=== PATIENT | female | born 1945 | race Caucasian/White ===

== ENCOUNTER 2021-08-06 08:35 | Inpatient (IN) | payer MEDICARE, OTHER ==
[~2021-08-06] VITALS: Ht 147.3 cm; Wt 52.2 kg
--- NOTE | 2021-08-06 08:46 | NUR ---
BIB RA 84 FROM HOME,RECENTLY DIAGNOSED WITH ALZHEIMER'S,AGITATED,THROWING "STUFF" AT HER WHO CALLED 911. THE PATIENT IS ALERT AND ORIENTED X2. DENIES PAIN. IN ROOM AIR AND DENIES SOB. RESPIRATION REGULAR AND UNLABORED. THE PATIENT DENIES SI/HI. DENIES VISUAL/AUDITORY HALLUCINATIONS. THE PATIENT IS ATTACHED TO THE MONITOR. WARM BLANKET PROVIDED FOR COMFORT. WILL CONTINUE TO MONITOR THE PATIENT.
--- NOTE | 2021-08-06 08:58 | NUR ---
urine collected and sent to the lab
--- NOTE | 2021-08-06 08:58 | NUR ---
covid antigen swab done and sent to the lab
--- NOTE | 2021-08-06 09:03 | NUR ---
Walker () [phone] (home number) # [phone]
[2021-08-06 09:05] LABS: BASOPHILS # (AUTO) 0.1 K/uL (0.0-0.2); BASOPHILS % (AUTO) 1.4 % (0.0-2.0); EOSINOPHILS % (AUTO) 3.4 % (0.0-6.0); HEMATOCRIT 38 % (33-45); HEMOGLOBIN 12.5 g/dL (11.5-14.8); LYMPHOCYTES # (AUTO) 1.3 K/uL (0.8-4.8); LYMPHOCYTES % (AUTO) 23.7 % (20.0-44.0); MEAN CORPUSCULAR HGB CONC 33 g/dl (31.0-36.0); MEAN CORPUSCULAR VOLUME 94 fL (82-100); MONOCYTES # (AUTO) 0.5 K/uL (0.1-1.30); MONOCYTES % (AUTO) 9.7 % (2.0-12.0); NEUTROPHILS # (AUTO) 3.3 K/uL (1.8-8.9); NEUTROPHILS % (AUTO) 61.8 % (43.0-81.0); PLATELET COUNT (AUTO) 253 K/uL (150-450); WHITE BLOOD COUNT (AUTO) 5.4 K/uL (4.3-11.0)
[2021-08-06 09:08] LABS: BILIRUBIN,URINE NEGATIVE (NEGATIVE); COLOR,URINE YELLOW (YELLOW); LEUKOCYTE ESTERASE ,URINE NEGATIVE (NEGATIVE); NITRITE, URINE NEGATIVE (NEGATIVE); PH,URINE 5.5 (5.0-8.0); PROTEIN,URINE NEGATIVE (NEGATIVE); UGLUCOSE NEGATIVE (NEGATIVE); UROBILINOGEN,URINE 0.2 EU/dL (0.2)
[2021-08-06] MEDS ORDERED: AMLO1CAP5 PO (09:19)
[2021-08-06] MEDS ORDERED: MEMA1CAP5 PO (09:19)
[2021-08-06] MEDS ORDERED: ESCI10TA PO (09:19)
[2021-08-06] MEDS ORDERED: QUET25TA PO (09:19)
[2021-08-06] MEDS ORDERED: ESTR-7 PO (09:19)
[2021-08-06 09:31] LABS: BACTERIA,URINE 2+ /HPF (None Seen); RBC,URINE 0-2 /HPF (0-2); SQUAMOUS EPITHELIAL CELL,UR Moderate /HPF (None Seen); WBC,URINE 0-2 /HPF (0-3)
[2021-08-06 09:32] LABS: CALCIUM OXALATE CRYSTALS,UR Moderate /HPF (None Seen)
[2021-08-06 09:38] LABS: ALANINE AMINOTRANSFERASE 18 U/L (12-78); ALBUMIN 3.6 g/dL (3.4-5.0); ALKALINE PHOSPHATASE 57 U/L (46-116); ASPARTATE AMINOTRANSFERASE 15 U/L (15-37); BILIRUBIN,DIRECT 0.2 mg/dL (0.0-0.2); BILIRUBIN,TOTAL 0.9 mg/dL (0.2-1.0); CARBON DIOXIDE 26 mmol/L (21-32); CHLORIDE 108 mmol/L (98-107); CREATININE 0.6 mg/dL (0.6-1.3); GLUCOSE 96 mg/dL (74-106); POTASSIUM 3.5 mmol/L (3.5-5.1); SODIUM SERUM 143 mmol/L (136-145); TOTAL PROTEIN, SERUM 6.3 g/dL (6.4-8.2); UREA NITROGEN, BLOOD 10 mg/dL (7-18)
[2021-08-06 09:46] LABS: ALCOHOL, BLOOD < 3 mg/dL (0-0)
[2021-08-06 09:47] LABS: ACETAMINOPHEN < 0 ug/ml (10-30)
--- NOTE | 2021-08-06 09:55 | NUR ---
CALLED LEI PUGH.
--- NOTE | 2021-08-06 12:17 | NUR ---
MOVE SHEET SUBMITTED.
--- NOTE | 2021-08-06 15:00 | NUR ---
PATIENT IS CALM RESPONDING POLITELY.
--- NOTE | 2021-08-06 16:51 | NUR ---
GOT BED 219-B
--- NOTE | 2021-08-06 17:24 | NUR ---
REPORT GIVEN TO NURSE MANN FOR VALERY
[2021-08-06] MEDS ORDERED: MAG HYDROX/AL HYDROX/SIMETH 30 ML UDC PO PRN (20:00)
[2021-08-06] MEDS ORDERED: BLOOD SUGAR DIAGNOSTIC 1 EACH STRIP IN ONE (20:00)
[2021-08-06 20:11] VITALS: BP 117/69
[2021-08-06] MEDS ORDERED: LORAZEPAM 0.5 MG TABLET PO PRN (20:30)
[2021-08-06] MEDS ORDERED: TEMAZEPAM 7.5 MG CAPSULE PO PRN (20:30)
--- NOTE | 2021-08-06 20:41 | NUR ---
RN NOTES :REFUSED SKIN ASSESSMENT PT. REFUSED FULL BODY ,SKIN ASSESSMENT AND PHOTOS TAKEN, ENCOURAGED X3 RISKS AND BENEFITS EXPLAINED, PER PT.MY SKIN IS FINE AND I AM FEELING IRRITABLE .
--- NOTE | 2021-08-06 20:42 | NUR ---
RN NOTES: PT. INTALLIY BLOOD SUGAR WAS 80 MGDL , PROVIDE SNACKS ,ORANGE JUICES GRANCRAKERS AND SANDWICH , PT. ATE SNACKS WELL , AND PT. REFUSED TO RECHECK BLOOD SUGAR, PER PT. I AM FINE.
[2021-08-06 23:57] VITALS: BP 118/72
--- NOTE | 2021-08-07 00:03 | NUR ---
RN NOTES : ADMISSION NOTES: ADMITTED THIS 76Y/O FEMALE PATIENT ADMIT FROM [facility]/ED , INITIALLY FROM HOME PT. ADMITTED TO 5150 HOLD STATUS, PER HOLD PT.INCREASED AGITATION,CONFUSION AND AGGRESSIVE BEHAVIOR . PER HER BREAKING THINGS AT HOME SCREAMING YELLING AT HIM,UPON FACE TO FACE ASSESSMENT PATIENT IS A&O X1 UNCOOPERTIVE ANXIOUS ,EASILY AGITATED, RESTLESS ,PARANOID ,DISHELVED ,DISORGNIZED, CONFUSED , LOUD SPEECH, HYPERVERBAL ,BIZAAR BEHAVIOR, JUMPING ONE TOPIC TO ANOTHER,NEEDS FREQUENTLY REDIRECTIONS , DENIES SI /HI AT THIS TIME, PT. IS POOR HISTORIAN, POOR INSIGHT ,POOR JUDGEMENT , BOTH MD AWARE AND NOTIFIED OF THE ADMISSION, BELONGINGS CONTRABAND WERE DONE , PT. REFUSED SIGNS ADMISSION CONSENT PAPER DUE TO CONFUSION ,ENCOURAGED PT. TO TAKE SHOWER, PT. RIGHTS DISCUSS BY ATHLETIC SCOUT , PROVIDE THE PT. WITH HANDBOOK, AND MEDICATIONS GUIDE, ENVIRONMENTAL SAFETY CHECK DONE, ENCOURAGED PT. VERBALIZED ANY FEELING CONCERN TO STAFF, ORIENT TO UNIT POLICY, NO ACUTE DISTRESS NOTED,VITAL SIGNS WNL ,DENIES ANY PAIN AT THIS TIME,WILL CONTINUE TO MONITOR FOR Q15 SAFETY AND BEHAVIOR.
[2021-08-07] MEDS: LORAZEPAM 0.5 MG TABLET PO PRN (04:50)
--- NOTE | 2021-08-07 04:53 | NUR ---
RN NOTES: ANXIETY PT. NOTED ANXIOUS SCREAMING PARANOID,YELLING NON REDIRECTABLE PRN ATIVAN 0.5 MG PO GIVEN , WILL CONTINUE TO MONITOR.
[2021-08-07 07:18] LABS: BASOPHILS # (AUTO) 0.1 K/uL (0.0-0.2); BASOPHILS % (AUTO) 1.1 % (0.0-2.0); HEMATOCRIT 42 % (33-45); HEMOGLOBIN 13.9 g/dL (11.5-14.8); LYMPHOCYTES # (AUTO) 1.4 K/uL (0.8-4.8); LYMPHOCYTES % (AUTO) 20.4 % (20.0-44.0); MEAN CORPUSCULAR HGB CONC 33 g/dl (31.0-36.0); MEAN CORPUSCULAR VOLUME 93 fL (82-100); MONOCYTES # (AUTO) 0.7 K/uL (0.1-1.30); MONOCYTES % (AUTO) 10.1 % (2.0-12.0); NEUTROPHILS # (AUTO) 4.7 K/uL (1.8-8.9); NEUTROPHILS % (AUTO) 67.4 % (43.0-81.0); PLATELET COUNT (AUTO) 289 K/uL (150-450); RED BLOOD CELL COUNT(AUTO) 4.47 MIL/uL (4.0-5.2); WHITE BLOOD COUNT (AUTO) 6.9 K/uL (4.3-11.0)
[2021-08-07 08:00] VITALS: BP 120/84
[2021-08-07 08:25] LABS: ALANINE AMINOTRANSFERASE 17 U/L (12-78); ALBUMIN 3.9 g/dL (3.4-5.0); ALKALINE PHOSPHATASE 65 U/L (46-116); ASPARTATE AMINOTRANSFERASE 14 U/L (15-37); BILIRUBIN,TOTAL 0.8 mg/dL (0.2-1.0); CALCIUM, SERUM 9.4 mg/dL (8.5-10.1); CARBON DIOXIDE 29 mmol/L (21-32); CHLORIDE 105 mmol/L (98-107); CREATININE 0.5 mg/dL (0.6-1.3); GLUCOSE 112 mg/dL (74-106); POTASSIUM 3.1 mmol/L (3.5-5.1); SODIUM SERUM 143 mmol/L (136-145); UREA NITROGEN, BLOOD 9 mg/dL (7-18)
[2021-08-07] MEDS: AMLODIPINE BESYLATE 5 MG TABLET PO SCH (08:28)
[2021-08-07] MEDS: BENAZEPRIL HCL 10 MG TABLET PO SCH (08:29)
[2021-08-07 08:30] LABS: CHOLESTEROL 216 mg/dL (<200); HDL CHOLESTEROL 96 mg/dL (40-60); LDL 100 mg/dL (0-99); TRIGLYCERIDES 67 mg/dL (30-150)
--- NOTE | 2021-08-07 08:45 | NUR ---
RN NOTES PATIENT ESTROGEN DRUG NOT PRESENT IN OMNICELL OR CASETTE, I SPOKE WITH PHARMACY, THE MEDICATION IS NOT CARRIED BY [facility] AND MUST BE PROVIDED BY FAMILY.
[2021-08-07] MEDS ORDERED: ESTROGEN,CON/MPROGEST0.3-1.5MG 1 EACH TABLET PO SCH (09:00)
[2021-08-07] MEDS ORDERED: POTASSIUM CHLORIDE 20 MEQ TAB.PRT.SR PO ONE (10:00)
[2021-08-07] MEDS ORDERED: LORAZEPAM INJ 2 MG/ML VIAL IM ONE (11:30)
--- NOTE | 2021-08-07 11:33 | NUR ---
RN-CO: Patient during Dr Mckeon's interview was extremely agitated and cursed Dr Mckeon . She also threatened her to kill her. I offered Ativan by mouth but she got more angry and tried to spit on the staff. Ativan 1mg IM then was ordered and carried out.
[2021-08-07] MEDS: DIVALPROEX SODIUM 125 MG CAP.SPRINK PO SCH ×2 (13:13→17:31)
[2021-08-07 16:00] VITALS: BP 117/63
[2021-08-07] MEDS: risperiDONE 1 MG TABLET PO SCH (17:32)
--- NOTE | 2021-08-07 19:25 | NUR ---
GPS RN NOTE RECEIVED PATIENT IN ZOE CHAIR; AWAKE, ALERT AND ORIENTED X1. PATIENT IS AGGRESSIVE, PARANOID, HYPERVERBAL, YELLS AND SCREAMS. ON ROOM AIR; TOLERATING WELL. IN NO ACUTE DISTRESS NOTED. NEEDS ATTENDED AND ANTICIPATED. SAFETY MEASURES IMPLEMENTED: ZOE CHAIR TIRES LOCKED, HEAD OF CHAIR ELEVATED TO PATIENT'S PREFERENCE. WILL CONTINUE TO MONITOR.
[2021-08-07 20:00] VITALS: BP 121/62
[2021-08-07] MEDS: MEMANTINE HCL 5 MG TABLET PO SCH (23:00)
[2021-08-07] MEDS: DONEPEZIL 5 MG TABLET PO SCH (23:00)
--- NOTE | 2021-08-08 07:30 | NUR ---
PT RECEIVED RESTING COMFORTABLY IN BED. NO S/S OR C/O PAIN OR DISTRESS NOTED. SIDE RAILS UP X2. WILL CONTINUE PLAN OF CARE.
[2021-08-08 08:00] VITALS: BP 127/69
[2021-08-08] MEDS: MEMANTINE HCL 5 MG TABLET PO SCH ×2 (09:02→21:57)
[2021-08-08] MEDS: AMLODIPINE BESYLATE 5 MG TABLET PO SCH (09:02)
[2021-08-08] MEDS: BENAZEPRIL HCL 10 MG TABLET PO SCH (09:02)
[2021-08-08] MEDS: DIVALPROEX SODIUM 125 MG CAP.SPRINK PO SCH ×4 (09:02→21:56)
[2021-08-08] MEDS: risperiDONE 1 MG TABLET PO SCH ×3 (09:02→16:10)
--- NOTE | 2021-08-08 09:45 | NUR ---
EVANGELISTA Clinical Note: Pt placed on a 5150 hold for danger to others and GD. Pt was aggressive at home towards her . Pt not taking her medications at home. unable to care for pt at home. Patient currently resides at home located at [address] [place] [address]; ([phone]). Pt resides at home with Don ([phone]).
--- NOTE | 2021-08-08 09:45 | NUR ---
EVANGELISTA Initial Discharge Plan: Patient currently resides at home located at [address] [place] [address]; ([phone]). Pt resides at home with Burke ([phone]). EVANGELISTA will work with the MD, treatment team, and family to help coordinate appropriate discharge.
--- NOTE | 2021-08-08 09:46 | NUR ---
Treatment Plan: Pt refused to sign treatment plan due to being confused.
--- NOTE | 2021-08-08 11:19 | NUR ---
EVANGELISTA Family Contact: SW contacted pt's Don ([phone]) to gather collateral and discuss treatment/discharge plan. Unavailable and left a voicemail.
[2021-08-08 16:00] VITALS: BP 110/63
[2021-08-08] MEDS: [UNRECOGNIZED DRUG - MIXTURE] PO SCH (16:10)
--- NOTE | 2021-08-08 18:06 | NUR ---
CHANGE OF SHIFT REPORT PT RESTING COMFORTABLY IN BED. NO S/S OR C/O PAIN OR DISTRESS NOTED. SIDE RAILS UP X2, PT KEPT CLEAN DRY AND COMFORTABLE. NO SIGNIFICANT CHANGE SINCE PREVIOUS SHIFT. WILL GIVE REPORT TO DEYANIRA DIAZ.
[2021-08-08 20:00] VITALS: BP 109/60
[2021-08-08] MEDS: DONEPEZIL 5 MG TABLET PO SCH (21:56)
[2021-08-08] MEDS: ACETAMINOPHEN 325 MG TABLET PO PRN (21:56)
[2021-08-08] MEDS: TEMAZEPAM 7.5 MG CAPSULE PO PRN (21:57)
[2021-08-09 08:00] VITALS: BP 110/59
[2021-08-09] MEDS: [UNRECOGNIZED DRUG - MIXTURE] PO SCH (09:00)
[2021-08-09] MEDS: MEMANTINE HCL 5 MG TABLET PO SCH ×2 (09:06→21:49)
[2021-08-09] MEDS: risperiDONE 1 MG TABLET PO SCH ×3 (09:06→17:01)
[2021-08-09] MEDS: DIVALPROEX SODIUM 125 MG CAP.SPRINK PO SCH ×4 (09:06→21:49)
[2021-08-09] MEDS: AMLODIPINE BESYLATE 5 MG TABLET PO SCH (09:07)
[2021-08-09] MEDS: BENAZEPRIL HCL 10 MG TABLET PO SCH (09:07)
--- NOTE | 2021-08-09 09:27 | NUR ---
SNF Referral: EVANGELISTA sent clinicals to [facility] to Ollie waller ([phone]) for placement option. SW sent H & P, progress notes, and medication list.
--- NOTE | 2021-08-09 12:07 | NUR ---
SNF Contact: spoke with Jesús LONDONO to Ollie waller ([phone]) who stated that the pt is accepted.
--- NOTE | 2021-08-09 12:33 | NUR ---
EVANGELISTA Family Contact: EVANGELISTA received a call from Claribel ([phone]) who stated that pt is her aunt. She reported that she will be the main point of contact. She shared that pt's Carter had fell at home and is in severe condition. She reported that he is at [facility] and that pt is not able to return back home due to pt not being able to take care of self. EVANGELISTA stated doctor has recommended a nursing facility. She is agreeable of this plan. Addendum: 08/10/21 at 1148 by EVANGELISTA MILIAN Correct number ([phone])
[2021-08-09 16:13] VITALS: BP 120/69
--- NOTE | 2021-08-09 19:13 | NUR ---
RN-CO: FORGOT TO SCAN ATIVAN AT 0845 AM . PT WAS AGITATED.ATIVAN 0.5 MG PO GIVEN AT 0845. PHARCY MADE AWARE OF NON SCANNING IT ON TIME.
[2021-08-09] MEDS: LORAZEPAM 0.5 MG TABLET PO PRN (19:16)
[2021-08-09 20:25] VITALS: BP 112/58
[2021-08-09] MEDS: ACETAMINOPHEN 325 MG TABLET PO PRN (21:49)
[2021-08-09] MEDS: DONEPEZIL 5 MG TABLET PO SCH (21:50)
[2021-08-10 08:00] VITALS: BP 146/81
[2021-08-10] MEDS: BENAZEPRIL HCL 10 MG TABLET PO SCH (08:48)
[2021-08-10] MEDS: risperiDONE 1 MG TABLET PO SCH ×3 (08:48→17:08)
[2021-08-10] MEDS: MEMANTINE HCL 5 MG TABLET PO SCH ×2 (08:48→21:32)
[2021-08-10] MEDS: AMLODIPINE BESYLATE 5 MG TABLET PO SCH (08:49)
[2021-08-10] MEDS: DIVALPROEX SODIUM 125 MG CAP.SPRINK PO SCH ×4 (08:49→21:32)
[2021-08-10] MEDS: PREMPRO PO SCH (08:51)
[2021-08-10 16:00] VITALS: BP 129/80
--- NOTE | 2021-08-10 19:30 | NUR ---
GPS RN NOTE, RECEIVED PATIENT AWAKE AND IN BED, NO S/S OR COMPLAINTS OF PAIN AT THIS TIME. PATIENT IS DISPLAYING NO S/S OF APPARENT DISTRESS AT THIS TIME. PATIENT BREATHING IS UNLABORED WITH EQUAL RISE AND FALL OF THE CHEST. PATIENT IS ALERT AND ORIENTED X 1 ON ROOM AIR WITH A SPO2 95%. PATIENT IS COMPLIANT WITH MEDICATIONS, CONFUSED AT TIMES, ANXIOUS AT TIMES, PARANOID, HYPERVERBAL, FOCUSED ON DISCHARGE, AND COOPERATIVE. PATIENT DENIES SUICIDAL AND HOMICIDAL IDEATIONS AT THIS TIME. PATIENT ASSISTED WITH TURNING AND REPOSITIONING Q2HR AND PRN FOR COMFORT AND CIRCULATION. PATIENT HAS NO NEEDS AT THIS TIME. PATIENT EDUCATED ON THE USE OF THE CALL IRVIN. PATIENT BED SIDE RAILS UP X 2 FOR SAFETY. PATIENT BED IS LOCKED, LOW, WITH BED ALARM ON. WILL CONTINUE TO MONITOR THIS PATIENT Q15 MINUTES WITH THE HELP OF STAFF TO MAINTAIN SAFETY.
[2021-08-10 20:00] VITALS: BP 107/58
[2021-08-10] MEDS: DONEPEZIL 5 MG TABLET PO SCH (21:32)
[2021-08-10] MEDS: MAGNESIUM HYDROXIDE 30 ML UDC PO PRN (21:32)
--- NOTE | 2021-08-10 21:32 | NUR ---
GPS RN NOTE, PATIENT HAS A COMPLAINT OF CONSTIPATION AND IS REQUESTING MILK OF MAGNESIA AT THIS TIME. PATIENT VITAL SIGN ARE STABLE. GAVE MILK OF MAGNESIA 1 UNIT DOSE PO Q12HR PRN ORDERED. WILL CONTINUE TO MONITOR THIS PATIENT WITH THE HELP OF STAFF.
[2021-08-11 08:00] VITALS: BP 110/59
[2021-08-11 09:26] VITALS: BP 130/68
[2021-08-11] MEDS: MEMANTINE HCL 5 MG TABLET PO SCH ×2 (09:26→21:27)
[2021-08-11] MEDS: DIVALPROEX SODIUM 125 MG CAP.SPRINK PO SCH ×3 (09:26→21:28)
[2021-08-11] MEDS: AMLODIPINE BESYLATE 5 MG TABLET PO SCH (09:26)
[2021-08-11] MEDS: risperiDONE 1 MG TABLET PO SCH ×3 (09:27→16:18)
[2021-08-11] MEDS: BENAZEPRIL HCL 10 MG TABLET PO SCH (09:27)
[2021-08-11] MEDS: PREMPRO PO SCH (09:28)
--- NOTE | 2021-08-11 11:00 | NUR ---
RN Notes: Received pt. asleep in bed, breathing is even and unlabored. Ate 100% for breakfast, with staff assistance, pt. assisted to go the bathroom and morning care rendered. pt. is cooperative to care and confused and disoriented.No distress and no agitation noted. Will continue to monitor for safety.
--- NOTE | 2021-08-11 14:13 | NUR ---
Court Notification: SW attempted to contact pt's niece Claribel ([phone]) and left a voicemail of pt's 7504 hearing today.
--- NOTE | 2021-08-11 15:17 | NUR ---
Court Hearing: Patient's court hearing for 2970 was today and it was upheld for GD and danger to others.
[2021-08-11 16:00] VITALS: BP 105/59
[2021-08-11 20:00] VITALS: BP 126/69
[2021-08-11] MEDS: DONEPEZIL 5 MG TABLET PO SCH (21:27)
[2021-08-11] MEDS: MAGNESIUM HYDROXIDE 30 ML UDC PO PRN (21:28)
[2021-08-11] MEDS: TEMAZEPAM 7.5 MG CAPSULE PO PRN (21:28)
--- NOTE | 2021-08-11 21:28 | NUR ---
GPS RN NOTE, PATIENT HAS A COMPLAINT OF NOT BEING ABLE TO SLEEP AND IS RESTING RESTORIL AT THIS TIME. PATIENT VITAL SIGNS ARE STABLE. GAVE RESTORIL 7.5MG PO HS PRN ORDERED. WILL REASSESS FOR INSOMNIA AND I WILL CONTINUE TO MONITOR THIS PATIENT WITH THE HELP OF STAFF.
[2021-08-12] MEDS ORDERED: Z GUARD REMEDY 4 OZ OINT TP PRN (07:00)
[2021-08-12 08:00] VITALS: BP 120/74
[2021-08-12] MEDS: DIVALPROEX SODIUM 125 MG CAP.SPRINK PO SCH ×3 (08:06→21:17)
[2021-08-12] MEDS: MEMANTINE HCL 5 MG TABLET PO SCH ×2 (08:07→21:16)
[2021-08-12] MEDS: risperiDONE 1 MG TABLET PO SCH ×3 (08:07→16:21)
[2021-08-12] MEDS: BENAZEPRIL HCL 10 MG TABLET PO SCH (08:07)
[2021-08-12] MEDS: AMLODIPINE BESYLATE 5 MG TABLET PO SCH (08:08)
[2021-08-12] MEDS: PREMPRO PO SCH (08:08)
--- NOTE | 2021-08-12 10:00 | NUR ---
RN Notes: Received pt. awake in the richy chair in the hallway. Pt. is quiet and confused. Ate 100% for breakfast with staff assistance. Morning care rendered. pt. is cooperative to care. No distress and no agitation noted. Will continue to monitor for safety.
[2021-08-12 16:00] VITALS: BP 139/77
[2021-08-12 20:00] VITALS: BP 144/70
[2021-08-12] MEDS: DONEPEZIL 5 MG TABLET PO SCH (21:17)
[2021-08-12] MEDS: TEMAZEPAM 7.5 MG CAPSULE PO PRN (21:21)
[2021-08-13 08:00] VITALS: BP 147/74
[2021-08-13] MEDS: PREMPRO PO SCH (08:07)
[2021-08-13] MEDS: AMLODIPINE BESYLATE 5 MG TABLET PO SCH (08:08)
[2021-08-13] MEDS: DIVALPROEX SODIUM 125 MG CAP.SPRINK PO SCH ×3 (08:08→21:03)
[2021-08-13] MEDS: MEMANTINE HCL 5 MG TABLET PO SCH ×2 (08:08→21:03)
[2021-08-13] MEDS: risperiDONE 1 MG TABLET PO SCH ×3 (08:09→16:08)
[2021-08-13] MEDS: BENAZEPRIL HCL 10 MG TABLET PO SCH (08:09)
--- NOTE | 2021-08-13 09:45 | NUR ---
RN Notes: Received pt. awake in the richy chair in the hallway. Pt. is quiet and confused. Ate 100% for breakfast with staff assistance. Morning care rendered. pt. is cooperative to care and pt. is confused and disoriented. No distress and no agitation noted. Will continue to monitor for safety.
[2021-08-13 16:00] VITALS: BP 114/72
[2021-08-13 20:57] VITALS: BP 126/73
[2021-08-13] MEDS: DONEPEZIL 5 MG TABLET PO SCH (21:03)
--- NOTE | 2021-08-14 06:48 | NUR ---
RN NOTE : PATIENT IN HER ROOM RESTING. PT.7 HOURS OF SLEEP, NO S/SX OF ACUTE DISTRESS NOTED.PT. NO BEHAVIOR PROBLEMS NOTED IN THIS SHIFT COOPERTIVE/UNCOOPERTIVE AT TIMES, MED COMPLIANT, EASILY AGITATED , BLUNTED AFFECT,DISORGNIZED, FORGETFUL. NO VERBALIZATION OF THOUGHTS AND FEELINGS. SAFETY PRECAUTIONS IN PLACE. WILL CONTINUE TO MONITOR Q15MIN ROUNDS FOR SAFETY AND BEHAVIOR.
[2021-08-14 08:00] VITALS: BP 110/69
[2021-08-14] MEDS: DIVALPROEX SODIUM 125 MG CAP.SPRINK PO SCH ×3 (08:16→22:03)
[2021-08-14] MEDS: MEMANTINE HCL 5 MG TABLET PO SCH ×2 (08:17→22:03)
[2021-08-14] MEDS: risperiDONE 1 MG TABLET PO SCH ×3 (08:17→17:17)
[2021-08-14] MEDS: BENAZEPRIL HCL 10 MG TABLET PO SCH (08:17)
[2021-08-14] MEDS: AMLODIPINE BESYLATE 5 MG TABLET PO SCH (08:17)
[2021-08-14] MEDS: PREMPRO PO SCH (08:19)
[2021-08-14 16:04] VITALS: BP 112/68
--- NOTE | 2021-08-14 18:20 | NUR ---
RN-NOTES PATIENT AWAKE,ALERT X1,GUARDED,NO ACUTE DISTRESS NOTED. COMPLIANT WITH MEDICATIONS. NEEDS ASSIST WITH ADL'S AND AMBULATION. COMPLIANT WITH MEDICATIONS.NEEDS ASSIST WITH ADL'S AND AMBULATION. ALL NEEDS ATTENDED AND ANTICIPATED. WILL CONT. MONITORING FOR SAFETY AND BEHAVIOR. WILL ENDORSE TO INCOMING SHIFT FOR CONTINUITY OF CARE.
[2021-08-14 20:23] VITALS: BP 104/60
[2021-08-14] MEDS: DONEPEZIL 5 MG TABLET PO SCH (22:02)
[2021-08-14] MEDS: TEMAZEPAM 7.5 MG CAPSULE PO PRN (22:08)
[2021-08-15 08:00] VITALS: BP 127/74
[2021-08-15] MEDS: AMLODIPINE BESYLATE 5 MG TABLET PO SCH (08:20)
[2021-08-15] MEDS: DIVALPROEX SODIUM 125 MG CAP.SPRINK PO SCH ×3 (08:20→21:11)
[2021-08-15] MEDS: BENAZEPRIL HCL 10 MG TABLET PO SCH (08:20)
[2021-08-15] MEDS: risperiDONE 1 MG TABLET PO SCH ×3 (08:20→16:28)
[2021-08-15] MEDS: MEMANTINE HCL 5 MG TABLET PO SCH ×2 (08:20→21:11)
[2021-08-15] MEDS: PREMPRO PO SCH (08:21)
[2021-08-15] MEDS: ENSURE ENLIVE CHOC 237 ML CAN PO SCH (08:25)
[2021-08-15 16:00] VITALS: BP 120/75
--- NOTE | 2021-08-15 19:20 | NUR ---
GPS RN NOTES RECEIVED PATIENT IN THE HALLWAY SITTING IN A ZOE-CHAIR. ALERT AND ORIENTED X1, NO S/S OF ACUTE DISTRESS NOTED. PATIENT REMAINS CONFUSED, DISORIENTED, YELLING/SCREAMING INTERMITTENTLY AND TALKING TO SELF. REORIENTATION PROVIDED. SAFETY PRECAUTIONS MAINTAINED. WILL CONTINUE TO MONITOR Q15MIN ROUNDS FOR SAFETY AND BEHAVIOR.
[2021-08-15 19:53] VITALS: BP 116/67
[2021-08-15] MEDS: DONEPEZIL 5 MG TABLET PO SCH (21:11)
[2021-08-15] MEDS: TEMAZEPAM 7.5 MG CAPSULE PO PRN (23:03)
[2021-08-16 08:00] VITALS: BP 105/56
[2021-08-16] MEDS: ENSURE ENLIVE CHOC 237 ML CAN PO SCH (09:00)
[2021-08-16] MEDS: BENAZEPRIL HCL 10 MG TABLET PO SCH (09:00)
[2021-08-16] MEDS: AMLODIPINE BESYLATE 5 MG TABLET PO SCH (09:00)
[2021-08-16] MEDS: risperiDONE 1 MG TABLET PO SCH ×3 (10:00→17:52)
[2021-08-16] MEDS: DIVALPROEX SODIUM 125 MG CAP.SPRINK PO SCH ×3 (10:00→21:21)
[2021-08-16] MEDS: PREMPRO PO SCH (10:01)
[2021-08-16] MEDS: MEMANTINE HCL 5 MG TABLET PO SCH ×2 (10:01→21:21)
[2021-08-16 16:00] VITALS: BP 127/74
--- NOTE | 2021-08-16 18:13 | NUR ---
IN DINING RM. MOST OF DAY.CONFUSED,ALERT AND ORIENTED X1.MED COMPLIANT.
--- NOTE | 2021-08-16 19:15 | NUR ---
GPS RN NOTES RECEIVED PATIENT IN BED RESTING COMFORTABLY. ALERT AND ORIENTED X1, NO S/S OF ACUTE DISTRESS NOTED. PATIENT REMAINS CONFUSED, DISORIENTED AND DISORGANIZED. REORIENTATION PROVIDED. SAFETY PRECAUTIONS MAINTAINED. WILL CONTINUE TO MONITOR Q15MIN ROUNDS FOR SAFETY AND BEHAVIOR.
[2021-08-16 19:54] VITALS: BP 108/54
[2021-08-16] MEDS: DONEPEZIL 5 MG TABLET PO SCH (21:21)
[2021-08-16] MEDS: TEMAZEPAM 7.5 MG CAPSULE PO PRN (23:32)
[2021-08-17 08:00] VITALS: BP 111/69
[2021-08-17] MEDS: DIVALPROEX SODIUM 125 MG CAP.SPRINK PO SCH ×3 (08:18→21:08)
[2021-08-17] MEDS: AMLODIPINE BESYLATE 5 MG TABLET PO SCH (08:18)
[2021-08-17] MEDS: BENAZEPRIL HCL 10 MG TABLET PO SCH (08:18)
[2021-08-17] MEDS: risperiDONE 1 MG TABLET PO SCH ×3 (08:18→16:36)
[2021-08-17] MEDS: MEMANTINE HCL 5 MG TABLET PO SCH ×2 (08:18→21:08)
[2021-08-17] MEDS: ENSURE ENLIVE CHOC 237 ML CAN PO SCH (08:19)
[2021-08-17] MEDS: PREMPRO PO SCH (08:24)
[2021-08-17 16:00] VITALS: BP 107/69
--- NOTE | 2021-08-17 16:53 | NUR ---
RN-NOTES PATIENT AWAKE,ALERT X1,QUIET,CALM, GUARDED,NO ACUTE DISTRESS NOTED. COMPLIANT WITH MEDICATIONS AND CARE. NEEDS ASSIST WITH ADL'S AND AMBULATION. ALL NEEDS ATTENDED AND ANTICIPATED. WILL CONT. MONITORING FOR SAFETY AND BEHAVIOR. WILL ENDORSE TO INCOMING SHIFT FOR CONTINUITY OF CARE.
[2021-08-17 20:00] VITALS: BP 109/60
[2021-08-17] MEDS: DONEPEZIL 5 MG TABLET PO SCH (21:08)
[2021-08-17] MEDS: TEMAZEPAM 7.5 MG CAPSULE PO PRN (21:08)
--- NOTE | 2021-08-17 21:08 | NUR ---
GPS RN NOTE PT UNABLE TO SLEEP, ASKING FOR SLEEPING MED. RESTORIL 7.5 GM PO GIVEN. CONTINUE TO MONITOR.
--- NOTE | 2021-08-17 22:08 | NUR ---
GPS RN NOTE PT FALL ASLEEP, NO DISTRESS NOTED.
[2021-08-18 08:00] VITALS: BP 115/65
[2021-08-18] MEDS: risperiDONE 1 MG TABLET PO SCH ×3 (08:11→16:55)
[2021-08-18] MEDS: MEMANTINE HCL 5 MG TABLET PO SCH ×2 (08:11→21:29)
[2021-08-18] MEDS: DIVALPROEX SODIUM 125 MG CAP.SPRINK PO SCH ×3 (08:12→21:29)
[2021-08-18] MEDS: AMLODIPINE BESYLATE 5 MG TABLET PO SCH (08:12)
[2021-08-18] MEDS: BENAZEPRIL HCL 10 MG TABLET PO SCH (08:13)
[2021-08-18] MEDS: PREMPRO PO SCH (08:13)
[2021-08-18] MEDS: ENSURE ENLIVE CHOC 237 ML CAN PO SCH (08:24)
--- NOTE | 2021-08-18 09:30 | NUR ---
RN Notes: Received pt. awake in the richy chair in the hallway. Pt. is confused and disoriented, no distress and no agitation noted. Ate 50% for breakfast and due meds given. Pt. reoriented to person, place, day, date and situation. Morning care rendered. Will continue to monitor for safety
--- NOTE | 2021-08-18 11:25 | NUR ---
EVANGELISTA Family Contact: EVANGELISTA spoke with patient's niece Claribel ([phone]) and discussed that pt is accepted at [facility] and she was agreeable of this. EVANGELISTA notified she will be discharged 08/19/2021.
[2021-08-18 16:00] VITALS: BP 120/63
--- NOTE | 2021-08-18 19:33 | NUR ---
GPS RN OPENING NOTES: RECEIVED PATIENT IN HALLWAY SITTING IN ZOE CHAIR, AWAKE, A/O X1. PASSIVE, WITHDRAWN, DISORIENTED, CONFUSED, PER PATIENT "YOU ARE IN [place]". PATIENT REORIENTED TO PRESENT SITUATION. DENIES PAIN AT THIS TIME. NO S/S OF DISTRESS. RESPIRATION EVEN AND UNLABORED WITH EQUAL RISE AND FALL OF THE CHEST, ON ROOM AIR. OFFERED FLUID AND SNACKS TOLERATED. WILL CONTINUE TO MONITOR Q15 FOR MOOD, SAFETY AND BEHAVIOR.
[2021-08-18 20:00] VITALS: BP 116/62
[2021-08-18] MEDS: DONEPEZIL 5 MG TABLET PO SCH (21:29)
[2021-08-18] MEDS: TEMAZEPAM 7.5 MG CAPSULE PO PRN (22:03)
--- NOTE | 2021-08-18 22:06 | NUR ---
GPS RN NOTES: RESTORIL 7.5MG GIVEN PO FOR SLEEP AT 2203. WILL CONTINUE TO MONITOR.
--- NOTE | 2021-08-19 06:27 | NUR ---
GPS RN CLOSING NOTES: PATIENT IS CURRENTLY SLEEPING IN BED. PATIENT SLEPT 7HRS THIS SHIFT. NO S/S OF DISTRESS. RESPIRATION EVEN AND UNLABORED WITH EQUAL RISE AND FALL OF THE CHEST, ON ROOM AIR. ALL PATIENT CARE NEEDS HAVE BEEN MET ANTICIPATED. BED IN LOW LOCKED POSITION, SIDE RAILS UP X2 FOR SAFETY. CALL IRVIN WITHIN REACH. WILL CONTINUE TO MONITOR Q15 FOR SAFETY, MOOD AND BEHAVIOR AND ENDORSE TO AM SHIFT.
[2021-08-19 08:00] VITALS: BP 100/62
--- NOTE | 2021-08-19 08:02 | NUR ---
SW Discharge Note: Patient will be discharged to detention facility [facility] [address] [place] [address]; ([phone]). Please arrange transportation at 1PM. Filling Carrier spoke with Ollie waller at [facility] ([phone]) who stated patient will be accepted at facility today. Patients is aware and agreeable. Patient is alert and oriented x2 and is not able to plan for self-care at this time but is willing to accept care provided for her at the facility. Patient denies suicidal or homicidal ideation. Patients niarie Rodrigues ([phone]) is aware. Patient will follow-up with (Psychiatrist) Dr. Mckeon [address], [place] [address]; ([phone]) and Chemist Physical Dr. Ernst [address] [facility] [address], [place] [address]; ([phone]). Patient presents with euthymic mood and congruent affect.
[2021-08-19 08:09] LABS: ALBUMIN 2.7 g/dL (3.4-5.0); BILIRUBIN,TOTAL 0.4 mg/dL (0.2-1.0); CALCIUM, SERUM 8.6 mg/dL (8.5-10.1); CREATININE 0.6 mg/dL (0.6-1.3); POTASSIUM 4.2 mmol/L (3.5-5.1); TOTAL PROTEIN, SERUM 5.6 g/dL (6.4-8.2)
[2021-08-19 08:14] LABS: BASOPHILS # (AUTO) 0.1 K/uL (0.0-0.2); BASOPHILS % (AUTO) 1.4 % (0.0-2.0); EOSINOPHILS % (AUTO) 3.7 % (0.0-6.0); HEMATOCRIT 33 % (33-45); HEMOGLOBIN 10.9 g/dL (11.5-14.8); LYMPHOCYTES # (AUTO) 1.6 K/uL (0.8-4.8); LYMPHOCYTES % (AUTO) 20.7 % (20.0-44.0); MEAN CORPUSCULAR HGB CONC 33 g/dl (31.0-36.0); MEAN CORPUSCULAR VOLUME 94 fL (82-100); MONOCYTES # (AUTO) 1.1 K/uL (0.1-1.30); NEUTROPHILS # (AUTO) 4.5 K/uL (1.8-8.9); NEUTROPHILS % (AUTO) 60.2 % (43.0-81.0); PLATELET COUNT (AUTO) 237 K/uL (150-450); WHITE BLOOD COUNT (AUTO) 7.5 K/uL (4.3-11.0)
[2021-08-19] MEDS: MEMANTINE HCL 5 MG TABLET PO SCH (08:56)
[2021-08-19] MEDS: DIVALPROEX SODIUM 125 MG CAP.SPRINK PO SCH (08:56)
[2021-08-19 08:57] VITALS: BP 100/62
[2021-08-19] MEDS: AMLODIPINE BESYLATE 5 MG TABLET PO SCH (08:57)
[2021-08-19] MEDS: BENAZEPRIL HCL 10 MG TABLET PO SCH (08:57)
[2021-08-19] MEDS: ENSURE ENLIVE CHOC 237 ML CAN PO SCH (08:58)
[2021-08-19] MEDS: risperiDONE 1 MG TABLET PO SCH ×2 (09:01→13:00)
[2021-08-19] MEDS: PREMPRO PO SCH (09:02)
--- NOTE | 2021-08-19 15:00 | NUR ---
Patient discharged to [facility] in stable condition.Compliant with medications ,cooperative with treatment plans Patient denies SI/HI/AVH .Behavior improved ,psychiatric tx plans met ,medical tx plans differed for for continual monitoring .Educated pt about after care plan (Exit -care)and copy provided Returned personal belongings to patient med list given and explained to patient able to verbalize understanding, [facility] .Vs stable ,no c/o pain .Patient seen by and with discharge orders .Patient discharge at 15:00 with ambulance.
== END 2021-08-19 15:00 | DRG 885 ==
LOC: ER 08:41 → TRANSITION 15:06 → GPS 16:59
PROVIDERS: ADMIT Psychiatry & Neurology Psychosomatic Medicine; ATTEND Internal Medicine
DX: F25.0 Schizoaffective disorder, bipolar type (principal); F23 Brief psychotic disorder; G30.9 Alzheimer's disease, unspecified; F02.80 Dementia in other diseases classified elsewhere, unspecified severity, without behavioral disturbance, psychotic disturbance, mood disturbance, and anxiety; F39 Unspecified mood [affective] disorder; I10 Essential (primary) hypertension; Z79.899 Other long term (current) drug therapy; Z73.6 Limitation of activities due to disability
CPT/HCPCS: 36415; 80048-TC; 80053-TC; 80061-TC; 80076-TC; 80164-TC; 81001; 82962-TC; 85025-TC; 87081-TC; 87086-TC; 97116-TC; 97530-TC; C9803; G0480; J2060

== ENCOUNTER 2021-12-09 21:26 | Inpatient (IN) | payer MEDICARE, OTHER ==
[~2021-12-09] VITALS: Ht 160 cm; Wt 43.1 kg
[~2021-12-09 21:26] MED LIST: AMLO1CAP5 PO; ESCI10TA PO; ESTR-7 PO; MEMA1CAP5 PO; QUET25TA PO
--- NOTE | 2021-12-09 22:01 | NUR ---
COVID SWAB COLLECTED
--- NOTE | 2021-12-09 22:10 | NUR ---
URINE COLLECTED SENT TO LAB
--- NOTE | 2021-12-09 22:15 | NUR ---
LAB AT BEDSIDE
[2021-12-09 22:29] LABS: BASOPHILS % (AUTO) 0.2 % (0.0-2.0); EOSINOPHILS % (AUTO) 0.1 % (0.0-6.0); HEMATOCRIT 33 % (33-45); HEMOGLOBIN 10.3 g/dL (11.5-14.8); LYMPHOCYTES # (AUTO) 1.4 K/uL (0.8-4.8); LYMPHOCYTES % (AUTO) 8.7 % (20.0-44.0); MEAN CORPUSCULAR HGB CONC 31 g/dl (31.0-36.0); MEAN CORPUSCULAR VOLUME 91 fL (82-100); MONOCYTES # (AUTO) 2.7 K/uL (0.1-1.30); NEUTROPHILS # (AUTO) 11.7 K/uL (1.8-8.9); PLATELET COUNT (AUTO) 283 K/uL (150-450); WHITE BLOOD COUNT (AUTO) 15.8 K/uL (4.3-11.0)
[2021-12-09 22:30] LABS: BILIRUBIN,URINE NEGATIVE (NEGATIVE); COLOR,URINE YELLOW (YELLOW); LEUKOCYTE ESTERASE ,URINE NEGATIVE (NEGATIVE); NITRITE, URINE NEGATIVE (NEGATIVE); PH,URINE 6.5 (5.0-8.0); PROTEIN,URINE NEGATIVE (NEGATIVE); UGLUCOSE NEGATIVE (NEGATIVE); UROBILINOGEN,URINE 0.2 EU/dL (0.2)
[2021-12-09 22:54] LABS: ALANINE AMINOTRANSFERASE 9 U/L (12-78); ALKALINE PHOSPHATASE 64 U/L (46-116); ASPARTATE AMINOTRANSFERASE 14 U/L (15-37); BILIRUBIN,DIRECT 0.2 mg/dL (0.0-0.2); BILIRUBIN,TOTAL 0.6 mg/dL (0.2-1.0); CALCIUM, SERUM 9.1 mg/dL (8.5-10.1); CARBON DIOXIDE 35 mmol/L (21-32); CHLORIDE 115 mmol/L (98-107); GLUCOSE 127 mg/dL (74-106); SODIUM SERUM 153 mmol/L (136-145); TOTAL PROTEIN, SERUM 5.4 g/dL (6.4-8.2); UREA NITROGEN, BLOOD 23 mg/dL (7-18)
[2021-12-09 23:01] LABS: POTASSIUM 2.7 mmol/L (3.5-5.1)
[2021-12-09] MEDS ORDERED: POTASSIUM CL. PREMIX PERIPHER. 50 ML ONE (23:20)
[2021-12-09] MEDS ORDERED: MAGNESIUM HYDROXIDE 30 ML UDC PO PRN (23:30)
[2021-12-09] MEDS ORDERED: ONDANSETRON HCL/PF 4 MG/2 ML VIAL IVP PRN (23:30)
[2021-12-09] MEDS ORDERED: Z GUARD REMEDY 4 OZ OINT TP PRN (23:30)
[2021-12-09] MEDS ORDERED: ACETAMINOPHEN 325 MG TABLET PO PRN (23:30)
[2021-12-09] MEDS ORDERED: MAG HYDROX/AL HYDROX/SIMETH 30 ML UDC PO PRN (23:30)
[2021-12-09] MEDS ORDERED: LORAZEPAM INJ 2 MG/ML VIAL IV PRN (23:30)
[2021-12-09] MEDS ORDERED: POTASSIUM CHLORIDE 10 MEQ/50 ML PREMIXED IVPB FOR PERIPHERAL LINE IV ONE (23:30)
[2021-12-09] MEDS ORDERED: MORPHINE SULFATE INJ 2 MG/ML DISP.SYRIN IV PRN (23:30)
[2021-12-10] MEDS ORDERED: POTASSIUM CL. PREMIX PERIPHER. 50 ML ONE ×2 (00:46→01:50)
--- NOTE | 2021-12-10 01:52 | NUR ---
TELE 326-2
--- NOTE | 2021-12-10 02:30 | NUR ---
REPORT GIVEN TO RN ZEKE
--- NOTE | 2021-12-10 02:38 | NUR ---
PATIENT TRANSFERRED UNDER ACLS
[2021-12-10 02:40] VITALS: BP 128/65
--- NOTE | 2021-12-10 02:45 | NUR ---
CRYSTAL GROWERCONDUCTOR SLEEPING CAR NOTES RECEIVED PATIENT FROM ED VIA [facility] AT 0227 UNDER THE CARE OF STEFFI DAVIS NP WITH PRIMARY DX OF FAILURE TO THRIVE AND SECONDARY DX OF HYPOKALEMIA. PATIENT IS ALERT AND ORIENTED TO PERSON, MAKES INCOMPREHENSIBLE SOUNDS AND HAS A MEDICAL HX OF DEMENTIA. ADMISSION INFO TAKEN FROM MEDICAL RECORDS BROUGHT WITH THE PATIENT. BREATHING IS EVEN AND NON-LABORED ON ROOM AIR, SATURATING AT 91%. PLACED ON O2 AT 2LPM VIA NASAL CANULA. IN MILD DISTRESS, RE-ORIENTED TO UNIT AND STAFF. EXPLAINED EACH PROCEDURE BEING DONE. DENIES PAIN AT THIS TIME. ON TELE MONITOR READING SINUS RHYTHM AT 97 BPM. HAS RIGHT FOREARM IV ACCESS #18G WITH KCL 10 MEQ INFUSING WELL. NO S/S OF INFILTRATION NOTED. VS TAKEN. SKIN ASSESSMENT DONE. PATIENT IS UNABLE TO TAKE A SIP OF WATER USING A STRAW. ALL BELONGINGS ACCOUNTED FOR. SAFETY MEASURES IN PLACE: BED LOW AND LOCKED, SIDE RAILS UP X2, CALL LIGHT WITHIN REACH. WILL CONTINUE POC.
[2021-12-10] MEDS: IV D5W 1,000 ML IV PRN ×2 (03:45→15:55)
--- NOTE | 2021-12-10 07:00 | NUR ---
ENTRY EXAMINER CLOSING NOTES PATIENT IN BED ASLEEP, EASY TO AROUSE. A/O X1. FREQUENT RE-ORIENTATION NEEDED. ON O2 AT 2LPM VIA NASAL CANULA, NO SOB OR NOTED. NOT IN ACUTE DISTRESS. NO S/S OF PAIN NOTED. AFEBRILE. ON TELE MONITOR READING SINUS RHYTHM AT 94 BPM. HAS RIGHT FOREARM IV ACCESS #18G WITH D5 RUNNING AT 75 ML/HR. INTACT, PATENT AND FLUSHING. ALL DUE MEDS GIVEN AND NEEDS ATTENDED. PERINEAL CARE RENDERED. SAFETY MEASURES MAINTAINED. WILL ENDORSE TO NEXT SHIFT FOR VALERY.
[2021-12-10 07:20] LABS: BASOPHILS % (AUTO) 0.2 % (0.0-2.0); EOSINOPHILS % (AUTO) 0.2 % (0.0-6.0); HEMATOCRIT 31 % (33-45); HEMOGLOBIN 9.7 g/dL (11.5-14.8); LYMPHOCYTES % (AUTO) 6.8 % (20.0-44.0); MEAN CORPUSCULAR HGB CONC 31 g/dl (31.0-36.0); MEAN CORPUSCULAR VOLUME 92 fL (82-100); MONOCYTES # (AUTO) 2.6 K/uL (0.1-1.30); MONOCYTES % (AUTO) 17.3 % (2.0-12.0); NEUTROPHILS # (AUTO) 11.5 K/uL (1.8-8.9); NEUTROPHILS % (AUTO) 75.5 % (43.0-81.0); PLATELET COUNT (AUTO) 269 K/uL (150-450); RED BLOOD CELL COUNT(AUTO) 3.38 MIL/uL (4.0-5.2); WHITE BLOOD COUNT (AUTO) 15.3 K/uL (4.3-11.0)
--- NOTE | 2021-12-10 07:42 | NUR ---
ICE CRUSHER OPENING NOTES RECEIVED PATIENT IN BED ASLEEP BUT AROUSABLE , A/O X1 , ON 2 LITERS O2 NC ON WITH NO SOB OR DISTRESS NOTED . NO C/O OF PAIN AND DISCOMFORT . ON TELE MONITOR READING SINUS RHYTHM AT 92 BPM. HAS RIGHT FOREARM IV ACCESS #18G WITH KCL 10 MEQ INFUSING WELL. NO S/S OF INFILTRATION NOTED . SAFETY MEASURES IN PLACE: BED LOW AND LOCKED, SIDE RAILS UP X2, CALL LIGHT WITHIN REACH. WILL CONTINUE TO MONITOR FOR ANY CHANGES
[2021-12-10 07:59] LABS: ALBUMIN 1.8 g/dL (3.4-5.0); BILIRUBIN,DIRECT 0.2 mg/dL (0.0-0.2); BILIRUBIN,TOTAL 0.5 mg/dL (0.2-1.0); CALCIUM, SERUM 9.1 mg/dL (8.5-10.1); CREATININE 0.9 mg/dL (0.6-1.3); MAGNESIUM 2.4 mg/dL (1.8-2.4); PHOSPHORUS 3.1 mg/dL (2.5-4.9); POTASSIUM 3.1 mmol/L (3.5-5.1); TOTAL PROTEIN, SERUM 5.2 g/dL (6.4-8.2)
[2021-12-10 08:00] VITALS: BP 139/72
[2021-12-10 08:14] LABS: THYROID STIMULATING HORMONE 1.079 uIU/mL (0.358-3.74)
[2021-12-10] MEDS ORDERED: AMLO5TAB4 PO (09:11)
[2021-12-10] MEDS ORDERED: BENA20TA9 PO (09:11)
[2021-12-10] MEDS ORDERED: CRAN400C PO (09:11)
[2021-12-10] MEDS ORDERED: BUSP5TAB3 PO (09:11)
[2021-12-10] MEDS ORDERED: DIVA500T2 PO (09:12)
[2021-12-10] MEDS ORDERED: RISP1TAB7 PO (09:12)
[2021-12-10] MEDS ORDERED: MAGN400O6 PO (09:12)
[2021-12-10] MEDS ORDERED: MEMA10TA PO (09:12)
[2021-12-10] MEDS ORDERED: ACET325T53 PO (09:12)
[2021-12-10] MEDS ORDERED: DONE10TA44 PO (09:12)
[2021-12-10] MEDS ORDERED: MULT-439 PO (09:12)
[2021-12-10] MEDS ORDERED: DOCU-141 PO (09:12)
[2021-12-10] MEDS: PANTOPRAZOLE 40 MG VIAL IV SCH (09:56)
[2021-12-10] MEDS: POTASSIUM CL. PREMIX PERIPHER. 50 ML IV SCH ×4 (11:41→15:09)
[2021-12-10 11:54] LABS: LYMPHOCYTES % (MANUAL) 10 % (16-48); MONOCYTES % (MANUAL) 10 % (0-11.0); NEUTROPHILS % (MANUAL) 80 (42-76)
[2021-12-10 11:59] LABS: LYMPHOCYTES % (MANUAL) 11 % (16-48); MONOCYTES % (MANUAL) 7 % (0-11.0); NEUTROPHILS % (MANUAL) 82 (42-76)
[2021-12-10] MEDS: ENSURE ENLIVE 237 ML LIQUID (VANILLA) PO SCH ×2 (12:04→18:01)
[2021-12-10] MEDS: ENOXAPARIN SODIUM 30 MG/0.3 ML DISP.SYRIN SQ SCH (13:25)
[2021-12-10 16:06] VITALS: BP 132/68
--- NOTE | 2021-12-10 18:45 | NUR ---
CERAMIC TILER CLOSING NOTES PATIENT IN BED AWAKE , A/O X1 , PATIENT WEAN OFF FORM O2 AND TOLERATED ROOM AIR NO SOB OR DISTRESS NOTED . NO C/O OF PAIN AND DISCOMFORT . ON TELE MONITOR READING SINUS TACHY 109 BPM , NOTED LOW K AND REPLACED WITH 40 MEQ IV , HAS RIGHT FOREARM IV ACCESS #18G WITH D5 WATER OF 75 ML / HR , WITH HIGH SODIUM AND ON IV OF D5W ORDERED , NO S/S OF INFILTRATION NOTED . ALL DUE MEDS GIVEN ORDERED , SEEN BY GRANTS ADMINISTRATOR AND WITH ORDER CALORIE COUNT X 2 DAYS , ENDORSED TO NEXT SHIFT , REFUSED LUNCH AND DINNER DESPITE ASSISTANCE PROVIDED ,SAFETY MEASURES IN PLACE: BED LOW AND LOCKED, SIDE RAILS UP X2, CALL LIGHT WITHIN REACH. WILL CONTINUE TO MONITOR FOR ANY CHANGES
[2021-12-10 20:00] VITALS: BP 141/77
--- NOTE | 2021-12-10 20:10 | NUR ---
RN OPENING NOTE PATIENT ASLEEP IN BED. A/OX1. NO S/S OF DISTRESS, BREATHING WITHOUT DIFFICULTY ON ROOM AIR. LFA #18 INTACT AND PATENT W/ D5W @75ML/HR. TELE READS ST 111 (PATIENT'S BASELINE PER KILN PULLER). SAFETY MEASURES IN PLACE: BED LOCKED AND AT LOWEST POSITION, RAILS UP X2, CALL IRVIN WITHIN REACH. WILL CONTINUE TO MONITOR PATIENT.
--- NOTE | 2021-12-10 22:00 | NUR ---
RN NOTE PATIENT TAKEN DOWN TO RADIOLOGY FOR CT SCAN, HEAD WITHOUT CONTRAST. PATIENT STABLE.
--- NOTE | 2021-12-10 22:35 | NUR ---
RN NOTE PATIENT RETURNED FROM RADIOLOGY. PATIENT STABLE. WILL CONTINUE TO MONITOR.
[2021-12-11] VITALS: BP 132/65
[2021-12-11 04:00] VITALS: BP 135/76
[2021-12-11] MEDS: IV D5W 1,000 ML IV PRN ×2 (06:03→17:09)
[2021-12-11 06:40] LABS: BASOPHILS % (AUTO) 0.3 % (0.0-2.0); EOSINOPHILS % (AUTO) 0.8 % (0.0-6.0); HEMATOCRIT 32 % (33-45); HEMOGLOBIN 9.9 g/dL (11.5-14.8); LYMPHOCYTES # (AUTO) 1.3 K/uL (0.8-4.8); LYMPHOCYTES % (AUTO) 9.4 % (20.0-44.0); MEAN CORPUSCULAR HGB CONC 31 g/dl (31.0-36.0); MEAN CORPUSCULAR VOLUME 92 fL (82-100); MONOCYTES # (AUTO) 2.2 K/uL (0.1-1.30); MONOCYTES % (AUTO) 16.1 % (2.0-12.0); NEUTROPHILS # (AUTO) 10.2 K/uL (1.8-8.9); NEUTROPHILS % (AUTO) 73.4 % (43.0-81.0); PLATELET COUNT (AUTO) 255 K/uL (150-450); RED BLOOD CELL COUNT(AUTO) 3.45 MIL/uL (4.0-5.2); WHITE BLOOD COUNT (AUTO) 13.9 K/uL (4.3-11.0)
--- NOTE | 2021-12-11 06:41 | NUR ---
RN NOTE PATIENT HAS AN ORDER FOR CT OF CHEST, ABDOMEN, AND PELVIS W/ CONTRAST. SHE IS A/OX1. REACHED OUT TO LEANA BRISENO (FAMILY) @[phone], WHO IS LISTED CONTACT FOR PATIENT. LEANA BRISENO GAVE CONSENT; KARELY PAEZ RN, WITNESSED VIA PHONE CALL, WITH LEANA BRISENO. PATIENT STABLE; WILL CONTINUE TO MONITOR PATIENT.
[2021-12-11 07:00] VITALS: BP 129/77
[2021-12-11 07:00] LABS: CALCIUM, SERUM 8.9 mg/dL (8.5-10.1); CREATININE 0.8 mg/dL (0.6-1.3); MAGNESIUM 2.3 mg/dL (1.8-2.4); POTASSIUM 3.3 mmol/L (3.5-5.1)
--- NOTE | 2021-12-11 07:02 | NUR ---
RN CLOSING NOTE PATIENT ASLEEP IN BED. A/OX1. NO S/S OF DISTRESS, BREATHING WITHOUT DIFFICULTY ON ROOM AIR. RFA #18 INTACT AND PATENT W/ D5W @75ML/HR. TELE READS SR 88. SAFETY MEASURES IN PLACE: BED LOCKED AND AT LOWEST POSITION, RAILS UP X2, CALL IRVIN WITHIN REACH. WILL ENDORSE TO NEXT SHIFT FOR VALERY.
[2021-12-11 07:50] LABS: PHOSPHORUS 2.8 mg/dL (2.5-4.9)
[2021-12-11] MEDS: DIVALPROEX SODIUM 125 MG TABLET.DR PO SCH ×3 (08:22→17:06)
[2021-12-11] MEDS: PANTOPRAZOLE 40 MG VIAL IV SCH (08:22)
[2021-12-11] MEDS: ENSURE ENLIVE 237 ML LIQUID (VANILLA) PO SCH ×3 (08:38→17:07)
[2021-12-11] MEDS ORDERED: POTASSIUM CHLORIDE 20 MEQ TAB.PRT.SR PO ONE (09:00)
[2021-12-11 12:00] VITALS: BP 118/62
[2021-12-11] MEDS: PIPERACILLIN /TAZOBACTAM 3.375 G in IV D5W 50 ML IV SCH ×3 (12:29→23:56)
[2021-12-11] MEDS: ENOXAPARIN SODIUM 30 MG/0.3 ML DISP.SYRIN SQ SCH (12:39)
[2021-12-11] MEDS: MEGESTROL ACETATE 40 MG TABLET PO SCH (17:06)
--- NOTE | 2021-12-11 18:09 | NUR ---
SHIFT SUMMARY PATIENT IS A/O X1. ON RA SATURATING WELL. IV ACCESS ON RFA #18, D5W RUNNING AT 75 ML/HR. SAFETY MEASURES MAINTAINED. BED IN LOWEST POSITION, BRAKES LOCKED. SIDE RAILS UP X2. CALL LIGHT WITHIN REACH. WILL ENDORSE CONTINUITY OF CARE TO ONCOMING SHIFT.
[2021-12-11 20:00] VITALS: BP 123/63
--- NOTE | 2021-12-11 20:00 | NUR ---
RN OPENING NOTES PT IN BED, ASLEEP, AWAKENS TO VERBAL STIMULI. AOx1. ON RA AND TOLERATING WELL. NO SOB NOTED. NO S/SX OF RESPIRATORY DISTRESS NOTED. IV ACCESS IN RFA #18G RUNNING D5W @ 75 ML/HR. SAFETY PRECAUTIONS IN PLACE: BED IN LOWEST, LOCKED POSITION, SIDERAILS UPx2, AND BRAKES ON. TABLE AND CALL LIGHT WITHIN REACH. ALL NEEDS MET AT THIS TIME.
[2021-12-12] VITALS: BP 125/70
[2021-12-12 04:00] VITALS: BP 121/60
[2021-12-12] MEDS: PIPERACILLIN /TAZOBACTAM 3.375 G in IV D5W 50 ML IV SCH ×4 (05:16→23:14)
[2021-12-12] MEDS: IV D5W 1,000 ML IV PRN ×2 (05:16→23:21)
[2021-12-12 06:50] LABS: CALCIUM, SERUM 8.5 mg/dL (8.5-10.1); CREATININE 0.8 mg/dL (0.6-1.3)
[2021-12-12 07:00] VITALS: BP 108/55
--- NOTE | 2021-12-12 07:20 | NUR ---
RN CLOSING NOTES PT IN BED, ASLEEP, AWAKENS TO VERBAL STIMULI. AOx1. ON RA AND TOLERATING WELL. NO SOB NOTED. NO S/SX OF RESPIRATORY DISTRESS NOTED. IV ACCESS IN RFA #18G RUNNING D5W @ 75 ML/HR. ALL ORDERS CARRIED OUT. ALL NEEDS MET. PT KEPT CLEAN AND DRY. PT TURNED EVERY 2 HOURS. SAFETY PRECAUTIONS IN PLACE: BED IN LOWEST, LOCKED POSITION, SIDERAILS UPx2, AND BRAKES ON. TABLE AND CALL LIGHT WITHIN REACH. WILL ENDORSE TO ONCOMING SHIFT FOR VALERY.
--- NOTE | 2021-12-12 07:39 | NUR ---
RN OPENING NOTE PT IN BED ASLEEP, EASILY AWAKENS. ORIENTED TO PERSON ONLY. ON RA AND TOLERATING WELL. NO SOB NOTED. LUNG SOUNDS DIMINISHED ON AUSCULTATION. NO RONCHI OR RALES. IV ACCESS IN RFA #18G RUNNING D5W @ 75 ML/HR. SAFETY PRECAUTIONS IN PLACE: BED IN LOWEST, LOCKED POSITION, SIDERAILS UP x2, AND BRAKES ON. TABLE AND CALL LIGHT WITHIN REACH. WILL CONTINUE TO MONITOR AND ASSIST.
[2021-12-12] MEDS: PANTOPRAZOLE 40 MG/PACK PACK PO SCH (08:11)
[2021-12-12] MEDS: MEGESTROL ACETATE 40 MG TABLET PO SCH ×2 (08:12→17:26)
[2021-12-12] MEDS: ENSURE ENLIVE 237 ML LIQUID (VANILLA) PO SCH ×3 (08:13→17:27)
[2021-12-12] MEDS: DIVALPROEX SODIUM 125 MG TABLET.DR PO SCH ×3 (08:13→17:27)
[2021-12-12] MEDS ORDERED: IV NS 0.9% 250 ML IV ONE (09:43)
[2021-12-12] MEDS ORDERED: IOHEXOL-350 100 ML VIAL IV ONE (09:43)
[2021-12-12] MEDS: POTASSIUM CHLORIDE 20 MEQ POWDER PACKET PO SCH ×3 (09:45→12:57)
[2021-12-12 12:00] VITALS: BP 117/57
--- NOTE | 2021-12-12 12:41 | NUR ---
WOUND CARE CONSULT: PT PRESENTS WITH SACRAL DEEP TISSUE INJURY IN EVOLUTION AND BILATERAL HEEL INTACT DEEP TISSUE INJURIES, PRESENT ON ADMISSION. DR DAVID AGRAWAL CALLED FOR SURGICAL CONSULT AND DR GARNETT FOR DPM CONSULT. DISCUSSED SKIN PROTECTION WITH NURSING STAFF. IN AGREEMENT WITH PLAN OF CARE. Addendum: 12/12/21 at 1243 by ROSA GREEN WNDNU Amended: Links added.
[2021-12-12] MEDS: ENOXAPARIN SODIUM 30 MG/0.3 ML DISP.SYRIN SQ SCH (12:59)
[2021-12-12] MEDS ORDERED: NA PHOS,M-B/NA PHOS,DI-BA 1 EA ENEMA RC ONE (14:00)
--- NOTE | 2021-12-12 15:06 | NUR ---
RN NOTE- FLEETS ENEMA ADMINISTERED. LG BM RESULTING, TOLERATED WELL.
[2021-12-12] MEDS: PROSOURCE / PROSTAT (PYXIS) 30 ML UDC GT SCH (18:18)
--- NOTE | 2021-12-12 18:20 | NUR ---
RN CLOSING NOTE PT AWAKE IN BED. ORIENTED TO PERSON ONLY. NO BEHAVIORAL ISSUES. STABLE ON RA AND TOLERATING WELL. NO SOB NOTED. LUNG SOUNDS DIMINISHED ON AUSCULTATION. NO RONCHI OR RALES. ON TELE MONITOR SHOWING SINUS TACHYCARDIA @ 108 BPM. IV ACCESS IN RFA #18G RUNNING D5W @ 75 ML/HR. PO INTAKE ABOUT 10%. FLEET ENEMA ADMINISTERED WITH POSITIVE RESULTS. LARGE BM X2. URINE CULTURE NEEDS COLLECTING. CT OF CHEST, ABDOMEN, PELVIS IS DONE. MD AWARE OF RESULTS. VENOUS DOPPLER ORDERED AND COMPLETED. MD AWARE. WOUND CARE COMPLETED ON LEGS AND SACRUM. SAFETY PRECAUTIONS MAINTAINED: BED IN LOWEST, LOCKED POSITION, SIDERAILS UP x3, AND BRAKES ON. TABLE AND CALL LIGHT WITHIN REACH. WILL ENDORSE VALERY TO COPIER OPERATOR NURSE.
--- NOTE | 2021-12-12 19:30 | NUR ---
RESIDENT ASSISTANT CNA OPENING NOTE RECEIVED PT AWAKE IN BED. A/O X1 AND CONFUSED. PT STABLE ON ROOM AIR. NO SOB OR S/S OF RESPIRATORY DISTRESS. BREATHING EVEN AND UNLABORED. ON EXTERNAL ACLS NURSE READING ST 110 BPM. IV ACCESS RAC 18G, INTACT AND PATENT, RUNNING D5W @75 ML/HR. SAFETY PRECAUTIONS IN PLACE. BED IN LOWEST LOCKED POSITION, HOB ELEVATED, SIDE RAILS UP X 3, AND CALL LIGHT AND TABLE WITHIN REACH. ALL NEEDS MET AT THIS TIME.
[2021-12-12 20:00] VITALS: BP 117/58
[2021-12-12] MEDS: ENOXAPARIN SODIUM 40 MG/0.4 ML DISP.SYRIN SQ SCH (20:53)
[2021-12-13] VITALS: BP 104/50
[2021-12-13 04:00] VITALS: BP 115/67
[2021-12-13] MEDS: PIPERACILLIN /TAZOBACTAM 3.375 G in IV D5W 50 ML IV SCH ×2 (05:39→13:12)
--- NOTE | 2021-12-13 06:55 | NUR ---
[employer] LEAD CLOSING NOTE PT AWAKE IN BED. A/O X1 AND CONFUSED. PT STABLE ON ROOM AIR. NO SOB OR S/S OF RESPIRATORY DISTRESS. BREATHING EVEN AND UNLABORED. 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 IV ACCESS RAC 18G, INTACT AND PATENT, RUNNING D5W @75 ML/HR. WOUND TX DONE ORDERED. TURNED AND REPOSITIONED Q2H. KEPT CLEAN AND DRY. SAFETY PRECAUTIONS IN PLACE AT ALL TIMES. BED IN LOWEST LOCKED POSITION, HOB ELEVATED, SIDE RAILS UP X 3, AND CALL LIGHT AND TABLE WITHIN REACH. ALL NEEDS MET AT THIS TIME AND WILL ENDORSE TO ONCOMING NURSE FOR [place]ERY.
[2021-12-13 07:52] LABS: BASOPHILS % (AUTO) 0.4 % (0.0-2.0); EOSINOPHILS % (AUTO) 2.9 % (0.0-6.0); HEMATOCRIT 27 % (33-45); HEMOGLOBIN 8.7 g/dL (11.5-14.8); LYMPHOCYTES # (AUTO) 1.1 K/uL (0.8-4.8); LYMPHOCYTES % (AUTO) 10.4 % (20.0-44.0); MEAN CORPUSCULAR HGB CONC 32 g/dl (31.0-36.0); MEAN CORPUSCULAR VOLUME 90 fL (82-100); MONOCYTES # (AUTO) 1.5 K/uL (0.1-1.30); NEUTROPHILS # (AUTO) 7.6 K/uL (1.8-8.9); NEUTROPHILS % (AUTO) 72.3 % (43.0-81.0); PLATELET COUNT (AUTO) 261 K/uL (150-450); RED BLOOD CELL COUNT(AUTO) 2.99 MIL/uL (4.0-5.2); WHITE BLOOD COUNT (AUTO) 10.5 K/uL (4.3-11.0)
[2021-12-13 07:59] LABS: FERRITIN 726 ng/mL (8-388)
[2021-12-13 08:06] LABS: CALCIUM, SERUM 8.1 mg/dL (8.5-10.1); CARBON DIOXIDE 32 mmol/L (21-32); CHLORIDE 107 mmol/L (98-107); CREATININE 0.7 mg/dL (0.6-1.3); GLUCOSE 92 mg/dL (74-106); IRON, SERUM 17 ug/dl (50-175); PHOSPHORUS 2.9 mg/dL (2.5-4.9); POTASSIUM 3.5 mmol/L (3.5-5.1); SODIUM SERUM 146 mmol/L (136-145); TOTAL IRON BINDING CAPACITY 83 ug/dl (250-450); UREA NITROGEN, BLOOD 19 mg/dL (7-18)
--- NOTE | 2021-12-13 08:06 | NUR ---
RN OPENING NOTES PATIENT AWAKE IN BED RESTING, A/O X 1. NO S/S OF PAIN NOTED AT THIS TIME. ON ROOM AIR, NO DISTRESS OR SHORTNESS OF BREATH NOTED. IV ACCESS RFA #18G, INTACT, PATENT, FLUSHING WELL. PATIENT WITH EXTERNAL HEEL LAYER WITH CURRENT READING OF SR HR OF 86, NO CARDIAC DISTRESS NOTED AT THIS TIME. FALL AND SAFETY MEASURES IN PLACE, BED ALARM ON, BED IN LOW LOCK POSITION, CALL LIGHT AND TABLE WITHIN EASY REACH, SIDE RAILS UP X2. WILL CONTINUE TO MONITOR.
[2021-12-13] MEDS: PROSOURCE / PROSTAT (PYXIS) 30 ML UDC GT SCH ×2 (09:01→13:12)
[2021-12-13] MEDS: ENSURE ENLIVE 237 ML LIQUID (VANILLA) PO SCH ×2 (09:01→13:12)
[2021-12-13] MEDS: PANTOPRAZOLE 40 MG/PACK PACK PO SCH (09:01)
[2021-12-13] MEDS: DIVALPROEX SODIUM 125 MG TABLET.DR PO SCH ×2 (09:01→13:12)
[2021-12-13] MEDS: MEGESTROL ACETATE 40 MG TABLET PO SCH (09:01)
[2021-12-13] MEDS: ENOXAPARIN SODIUM 40 MG/0.4 ML DISP.SYRIN SQ SCH (09:04)
--- NOTE | 2021-12-13 16:30 | NUR ---
GUARD RAIL INSTALLER NOTE PATIENT DISCHARGE IN STABLE MEDICAL CONDITION. A/O X 1. V/S TAKEN, STABLE AND RECORDED. NO IV ACCESS. NAME ARM BAND REMOVED. EXTERNAL BREAST TRIMMER REMOVED AND RETURNED TO TELE DESK. SKIN ASSESSMENT DONE AND PICTURES TAKEN. ALL BELONGINGS CHECKED AND SIGNED. HEALTH TEACHING AND DISCHARGE INSTRUCTIONS GIVEN TO NURSE AT [facility], VERBALIZED UNDERSTANDING. REPORT GIVEN TO EMILY FRYE. INSTRUCTED INCASE OF EMERGENCY TO CALL 911 OR GO TO NEAREST ER. PATIENT LEFT VIA GURNEY WITH NO SIGN OF DISTRESS, ACCOMPANIED BY PARAMEDICS. CHARGE NURSE AWARE OF DISCHARGED.
== END 2021-12-13 16:35 | disposition hospice, home (50) | DRG 871 ==
LOC: ER 21:37 → TELE 12-10 01:57
PROVIDERS: ADMIT Nurse Practitioner Acute Care; ATTEND Internal Medicine
DX: A41.9 Sepsis, unspecified organism (principal); E43 Unspecified severe protein-calorie malnutrition; G92.8 Other toxic encephalopathy; I26.99 Other pulmonary embolism without acute cor pulmonale; E87.0 Hyperosmolality and hypernatremia; R64 Cachexia; Z68.1 Body mass index [BMI] 19.9 or less, adult; F05 Delirium due to known physiological condition; R62.7 Adult failure to thrive; D64.9 Anemia, unspecified; E87.6 Hypokalemia; G30.9 Alzheimer's disease, unspecified; F32.A Depression, unspecified; I10 Essential (primary) hypertension; J43.9 Emphysema, unspecified; K56.41 Fecal impaction; Z79.01 Long term (current) use of anticoagulants; M62.50 Muscle wasting and atrophy, not elsewhere classified, unspecified site; F02.80 Dementia in other diseases classified elsewhere, unspecified severity, without behavioral disturbance, psychotic disturbance, mood disturbance, and anxiety; N28.81 Hypertrophy of kidney; F29 Unspecified psychosis not due to a substance or known physiological condition; L89.626 Pressure-induced deep tissue damage of left heel; L89.616 Pressure-induced deep tissue damage of right heel; S31.000A Unspecified open wound of lower back and pelvis without penetration into retroperitoneum, initial encounter; X58.XXXA Exposure to other specified factors, initial encounter; Y93.9 Activity, unspecified; Y92.009 Unspecified place in unspecified non-institutional (private) residence as the place of occurrence of the external cause; K62.89 Other specified diseases of anus and rectum; F39 Unspecified mood [affective] disorder; Z20.822 Contact with and (suspected) exposure to COVID-19
CPT/HCPCS: 36415; 70450-TC; 71045-TC; 71260-TC; 80048-TC; 80076-TC; 82607-TC; 82728-TC; 83540-TC; 83605-TC; 83735-TC; 84100-TC; 84443-TC; 84484-TC; 85025-TC; 85730-TC; 87040-TC; 87081-TC; 87086-TC; 92526; 92611-TC; 93970-TC; 94799-TC; A6253; A6403; C9113; C9803; G0378; J1650; J2543; J3480; J7050; J7060; J7070; Q9967